=== PATIENT | female | born 1995 | race Caucasian/White ===

== ENCOUNTER → 2018-02-03 14:39 | Outpatient (CLI) | payer SELFPAY ==
[2018-02-08 09:18] LABS: HPV Reflexed? NOT INDICATED
== END ==
PROVIDERS: Visit Provider Obstetrics & Gynecology
DX: Z12.4 Encounter for screening for malignant neoplasm of cervix (principal); Z01.419 Encounter for gynecological examination (general) (routine) without abnormal findings
CPT/HCPCS: 88175; G0145

== ENCOUNTER → 2021-09-11 | Outpatient (CLI) | payer SELFPAY ==
[2021-09-11 16:44] LABS: Estradiol 241.6 pg/mL; Free T3 2.8 pg/mL (2.18-3.98); T4 Free Direct 1.06 ng/dL (0.76-1.46); Thyroid Stim Hormone (TSH) 1.74 uIU/mL (0.358-3.74)
[2021-09-11 17:02] LABS: Progesterone Level 4.23 ng/mL (See Comment); T3 Total - Triiodothyronine 1.02 ng/mL (0.6-1.81); Vitamin D,25 Hydroxy 20.2 ng/mL
[2021-09-19 14:10] LABS: Thyroid Peroxidase AB < 8 IU/mL (0-34)
[2021-09-19 15:23] LABS: T3 Reverse 22.3 ng/dL (9.2-24.1); Thyroglobulin Antibody < 1.0 IU/mL (0.0-0.9)
== END | disposition home or self-care (01) ==
PROVIDERS: Visit Provider Obstetrics & Gynecology
DX: E03.9 Hypothyroidism, unspecified (principal); E28.9 Ovarian dysfunction, unspecified; N96 Recurrent pregnancy loss
CPT/HCPCS: 36415; 82306; 82670; 84144; 84439; 84443; 84480; 84481; 84482; 86376; 86800

== ENCOUNTER → 2021-09-23 | Outpatient (CLI) | payer SELFPAY ==
[2021-09-23 11:12] LABS: Glucose 75GTT - 60 minutes 137 mg/dL (100-160)
[2021-09-23 11:14] LABS: Glucose 75GTT - Fasting 97 mg/dL (70-99)
[2021-09-23 11:14] LABS: Glucose 75GTT - 30 minutes 190 mg/dL (100-160)
[2021-09-23 11:21] LABS: Insulin 75GTT - 60 min 58.2 mU/L (Not Estab)
[2021-09-23 11:21] LABS: Insulin 75GTT - 30 MIN 91.9 mU/L (Not Estab.)
[2021-09-23 11:21] LABS: Insulin 75GTT - Fasting 4.8 mU/L (2.6-37.6)
[2021-09-23 13:43] LABS: Glucose 75GTT - 120 minutes 70 mg/dL (70-140)
[2021-09-23 13:52] LABS: Insulin 75GTT - 120 min 10.4 mU/L (Not Estab.)
== END | disposition home or self-care (01) ==
LOC: WOBLAB 09:41
PROVIDERS: Visit Provider Obstetrics & Gynecology
DX: R73.09 Other abnormal glucose (principal)
CPT/HCPCS: 36415; 82951; 82952; 83525